=== PATIENT | male | born 1990 | race African-American/Black ===

== ENCOUNTER 2024-07-21 18:19 | Emergency (ER) | payer OTHER, MEDICAID ==
[~2024-07-21] VITALS: Ht 182.9 cm; Wt 180.0 kg
[2024-07-21 18:22] VITALS: O2SAT 100
[2024-07-21] MEDS: OXYCODONE HCL/ACETAMINOPHEN 5/325MG TABLET PO ONE ×2 (18:45→21:06)
[2024-07-21] MEDS ORDERED: IBUP-2030 MT (21:56)
[2024-07-21 22:22] VITALS: BP 111/70; PULSE 85; RESP 14; TEMP 36.8; O2SAT 100
== END 2024-07-21 22:35 | disposition home or self-care (01) ==
LOC: ER 18:21
DX: M25.562 Pain in left knee (principal); Z55.6 Problems related to health literacy
CPT/HCPCS: 29505; 73562; 73590; 73600; 99285